=== PATIENT | female | born 1965 | race American Indian/Alaskan Native ===

== ENCOUNTER 2017-05-23 17:25 | Outpatient (CLI) | payer MEDICAID ==
--- NOTE | 2017-05-24 07:45 | Magnetic Resonance Report ---
MRI OF THE BRAIN WITHOUT CONTRAST: HISTORY: Headache PROCEDURE: Multiplanar, multisequence MR imaging of the brain without IV contrast was performed. FINDINGS: The brain parenchyma signal intensity and its gonzalez white interface are within normal limits on all sequences. No evidence for acute ischemia, hemorrhage or mass. No chronic infarct or extra-axial fluid collection. The midline structures are central. The basal cisterns are patent. Normal ventricular size. The orbital cavities and sella turcica demonstrate no abnormality. The visualized paranasal sinuses and mastoid air cells are well aerated. IMPRESSION: Unremarkable non-enhanced MRI of the brain.
--- NOTE | 2017-05-24 07:54 | Magnetic Resonance Report ---
MRI LUMBAR SPINE WITHOUT CONTRAST HISTORY: Low back pain. TECHNIQUE: axial T1, T2. sagittal T1,T2, STIR. COMPARISON: none. FINDINGS: The conus terminates at L1-2. No signal abnormality or mass. The cauda equina is within normal limits. No central canal stenosis. Normal height and alignment of the lumbar vertebra. The facet joints are in appropriate relationship. Normal bone marrow signal. No acute fracture or suspicious bone lesion. The paraspinal soft tissues are unremarkable. L1-2: No abnormality. L2-3: No abnormality. L3-4: No abnormality with the disc. Minimal arthritic changes in the facet joints. L4-5: No abnormality with the disc. Mild arthritic changes in the facet joints. L5-S1: No abnormality with the disc. Mild arthritic changes in the facet joints. IMPRESSION: Essentially unremarkable MRI of the lumbar spine. Mild arthritic changes are identified in the facet joints of the lower lumbar spine. No evidence for significant bulging disc, annular tear, herniation, central canal stenosis or neural foraminal impingement. These findings appear appropriate for this persons age.
== END 2017-05-23 17:26 | disposition home or self-care (01) ==
LOC: MRI 17:25
PROVIDERS: ATTEND Psychiatry & Neurology Neurology
DX: G43.709 Chronic migraine without aura, not intractable, without status migrainosus (principal); M46.86 Other specified inflammatory spondylopathies, lumbar region
CPT/HCPCS: 70551; 72148

== ENCOUNTER 2021-02-10 17:11 | Outpatient (CLI) | payer MEDICAID, OTHER ==
[2021-02-10 18:21] LABS: Uric Acid 11.4 mg/dL (3.5-7.6)
[2021-02-16 13:02] LABS: ANA Screen, IFA Negative (Negative)
== END 2021-02-10 17:12 | disposition home or self-care (01) ==
LOC: LAB 17:11
PROVIDERS: ATTEND Orthopaedic Surgery
DX: E11.9 Type 2 diabetes mellitus without complications (principal); M10.9 Gout, unspecified
CPT/HCPCS: 36415; 82947; 84550; 85652; 86038; 86431